=== PATIENT | female | born 1985 | race Caucasian/White ===

== ENCOUNTER 2017-01-15 10:00 | Emergency (ER) | payer OTHER | END 2017-01-15 10:33 | disposition home or self-care (01) | LOC: D.ER 10:00 | DX: S16.1XXA Strain of muscle, fascia and tendon at neck level, initial encounter (principal); V49.9XXA Car occupant (driver) (passenger) injured in unspecified traffic accident, initial encounter; Y93.89 Activity, other specified; Y92.410 Unspecified street and highway as the place of occurrence of the external cause; S49.92XA Unspecified injury of left shoulder and upper arm, initial encounter; F17.200 Nicotine dependence, unspecified, uncomplicated ==

== ENCOUNTER 2017-02-07 23:51 | Emergency (ER) | payer MEDICAID | END 2017-02-08 00:33 | disposition home or self-care (01) | LOC: D.ER 23:51 | DX: J20.9 Acute bronchitis, unspecified (principal); J45.909 Unspecified asthma, uncomplicated; F17.200 Nicotine dependence, unspecified, uncomplicated ==

== ENCOUNTER 2017-05-13 15:02 | Emergency (ER) | payer MEDICAID ==
[2017-05-13 18:12] LABS: HCG URINE NEGATIVE (NEGATIVE)
== END 2017-05-13 18:50 | disposition home or self-care (01) ==
LOC: D.ER 15:02
PROVIDERS: Emergency Medicine
DX: S80.02XA Contusion of left knee, initial encounter (principal); W10.9XXA Fall (on) (from) unspecified stairs and steps, initial encounter; Y93.89 Activity, other specified; Y92.019 Unspecified place in single-family (private) house as the place of occurrence of the external cause; S83.92XA Sprain of unspecified site of left knee, initial encounter; J45.909 Unspecified asthma, uncomplicated

== ENCOUNTER 2017-09-29 16:26 | Emergency (ER) | payer MEDICAID ==
[~2017-09-29] VITALS: Ht 160 cm; Wt 84.5 kg
[2017-09-29 16:40] VITALS: BP 126/81; Ht 160 cm; Wt 84.5 kg
[2017-09-29] MEDS ORDERED: HYDROCODON-ACE1 EAC7 PO (16:42)
[2017-09-29] MEDS ORDERED: CLONAZEPAM1 MG/TAB PO (16:42)
[2017-09-29 17:01] LABS: BASOPHILS 0.3 % (0-2); EOSINOPHILS 1.9 % (0-7); HEMOGLOBIN 15.6 g/dL (12-16); IMMATURE GRANULOCYTES 0.6 % (0-5); LYMPHOCYTES 34.5 % (15-50); MCH 32.3 pg (26.0-34.0); MCHC 34.7 g/dL (31.0-37.0); MCV 93.2 fL (80.0-100.0); MEAN PLATELET VOLUME 10.4 fL (7.4-10.4); MONOCYTES 6.1 % (2-11); NEUTROPHILS 56.6 % (40-80); PLATELET COUNT 212 10x3/uL (130-400); RBC 4.83 10x6/uL (4.00-5.40); RDW 12.8 % (11.5-14.5); WBC 7.2 10x3/uL (4.8-10.8)
[2017-09-29 17:19] LABS: ALKALINE PHOSPHATASE 60 U/L (46-116); ALT (SGPT) 55 U/L (10-68); CALC OSMOLALITY 273 mosm/kg (275-300); CALCIUM 9.1 mg/dL (8.5-10.1); CARBON DIOXIDE 24.7 mmol/L (21.0-32.0); CHLORIDE - SERUM 104 mmol/L (98-107); CREATININE - SERUM 0.8 mg/dL (0.6-1.3); GLUCOSE 108 mg/dL (74-106); POTASSIUM - SERUM 3.8 mmol/L (3.5-5.1); PROTEIN - SERUM 7.9 g/dL (6.4-8.2); SODIUM 137 mmol/L (136-145); UREA NITROGEN 11 mg/dL (7-18); eGFR NON AFRICAN AMERICAN 89 mL/min (90-120)
== END 2017-09-29 18:00 | disposition left against medical advice (07) ==
LOC: D.ER 16:26
PROVIDERS: Family Medicine
DX: R20.2 Paresthesia of skin (principal)

== ENCOUNTER 2018-01-06 19:38 | Emergency (ER) | payer MEDICAID ==
[~2018-01-06] VITALS: Ht 160 cm; Wt 86.8 kg
[~2018-01-06 19:38] MED LIST: CLONAZEPAM1 MG/TAB PO; HYDROCODON-ACE1 EAC7 PO
[2018-01-06 19:42] VITALS: Ht 160 cm; Wt 86.8 kg
[2018-01-06 20:15] LABS: APPEARANCE TURBID (CLEAR); COLOR RED (YELLOW)
[2018-01-06 20:16] LABS: BILIRUBIN NEGATIVE (NEGATIVE); GLUCOSE NEGATIVE (NEGATIVE); KETONE NEGATIVE (NEGATIVE); NITRITE NEGATIVE (NEGATIVE); PROTEIN NEGATIVE (NEGATIVE); RED CELLS - URINE >50 /hpf (0-5); UROBILINOGEN NORMAL (NORMAL); WHITE CELLS - URINE 0-5 /hpf (0-5)
[2018-01-06 20:18] LABS: BASOPHILS 0.4 % (0-2); EOSINOPHILS 1.9 % (0-7); HEMATOCRIT 45.2 % (36.0-48.0); HEMOGLOBIN 15.9 g/dL (12-16); IMMATURE GRANULOCYTES 0.4 % (0-5); LYMPHOCYTES 37.3 % (15-50); MCH 33.1 pg (26.0-34.0); MCHC 35.2 g/dL (31.0-37.0); MCV 94.2 fL (80.0-100.0); MEAN PLATELET VOLUME 10.7 fL (7.4-10.4); MONOCYTES 7.7 % (2-11); NEUTROPHILS 52.3 % (40-80); PLATELET COUNT 239 10x3/uL (130-400); RDW 12.5 % (11.5-14.5); WBC 9.4 10x3/uL (4.8-10.8)
[2018-01-06 20:31] LABS: ALKALINE PHOSPHATASE 63 U/L (46-116); ALT (SGPT) 58 U/L (10-68); BILIRUBIN - TOTAL 0.34 mg/dL (0.2-1.3); CALC OSMOLALITY 276 mosm/kg (275-300); CALCIUM 9.2 mg/dL (8.5-10.1); CARBON DIOXIDE 25.2 mmol/L (21.0-32.0); CHLORIDE - SERUM 102 mmol/L (98-107); CREATININE - SERUM 0.9 mg/dL (0.6-1.3); GLUCOSE 89 mg/dL (74-106); POTASSIUM - SERUM 3.8 mmol/L (3.5-5.1); PROTEIN - SERUM 7.8 g/dL (6.4-8.2); SODIUM 140 mmol/L (136-145); UREA NITROGEN 10 mg/dL (7-18); eGFR NON AFRICAN AMERICAN 77 mL/min (90-120)
[2018-01-06 20:34] LABS: HCG - QUANTITATIVE (MATERNAL) 0 mIU/mL
[2018-01-06 20:37] LABS: HCG SERUM NEGATIVE (NEGATIVE)
[2018-01-06 21:58] VITALS: BP 131/81
== END 2018-01-06 21:58 | disposition home or self-care (01) ==
LOC: D.ER 19:38
PROVIDERS: Family Medicine
DX: N93.9 Abnormal uterine and vaginal bleeding, unspecified (principal); G40.909 Epilepsy, unspecified, not intractable, without status epilepticus; F17.200 Nicotine dependence, unspecified, uncomplicated

== ENCOUNTER 2018-02-02 22:08 | Emergency (ER) | payer MEDICAID ==
[~2018-02-02] VITALS: Ht 160 cm; Wt 85.0 kg
[2018-02-02 22:24] VITALS: Ht 160 cm; Wt 85.0 kg
[2018-02-02] MEDS ORDERED: FLUTICASONE PRO16 GM NASAL (23:09)
[2018-02-02] MEDS ORDERED: AMOXICILLIN875 MG PO (23:09)
[2018-02-02 23:46] VITALS: BP 119/70
== END 2018-02-02 23:46 | disposition home or self-care (01) ==
LOC: D.ER 22:08
DX: J02.9 Acute pharyngitis, unspecified (principal); J01.90 Acute sinusitis, unspecified; F17.200 Nicotine dependence, unspecified, uncomplicated

== ENCOUNTER → 2019-10-24 09:41 | Outpatient (CLI) | payer MEDICAID ==
[2018-02-02 22:24] VITALS: BMI 33.2
[~2019-10-24 09:41] MED LIST changes: +AMOXICILLIN875 MG PO; +FLUTICASONE PRO16 GM NASAL
== END | disposition home or self-care (01) ==
LOC: D.CT 09:41
PROVIDERS: ATTEND Family Medicine
DX: M25.551 Pain in right hip (principal)

== ENCOUNTER 2020-09-01 14:11 | Emergency (ER) | payer MEDICAID ==
[~2020-09-01] VITALS: Ht 160 cm; Wt 69.4 kg
[~2020-09-01 14:11] MED LIST changes: +HYDROCODON-ACE1 EA10 PO
[2020-09-01 14:16] VITALS: Ht 160 cm; Wt 69.4 kg
[2020-09-01 14:29] VITALS: BP 136/78
[2020-09-01] MEDS ORDERED: CYCLOBENZAPRINE10 MG PO (15:24)
== END 2020-09-01 16:07 | disposition home or self-care (01) ==
LOC: D.ER 14:11
DX: M54.5 Low back pain (principal); G89.29 Other chronic pain